=== PATIENT | female | born 1995 | race Caucasian/White ===

== ENCOUNTER 2022-05-05 14:46 | Emergency (ER) | payer OTHER ==
[2022-05-05] MEDS ORDERED: Sodium Chloride 0.9% 1,000 ML IV ONE (15:30)
[2022-05-05] MEDS ORDERED: Ondansetron 4 MG/2 ML SDV IVPUSH ONE ×2 (15:36→16:36)
[2022-05-05] MEDS ORDERED: Ondansetron 4 MG/2 ML SDV ONE (16:11)
[2022-05-05] MEDS ORDERED: Sodium Chloride 0.9% 1,000 ML IV SCH (16:45)
== END 2022-05-05 16:53 ==
LOC: LB.ED 14:46
DX: O03.4 Incomplete spontaneous abortion without complication (principal); I10 Essential (primary) hypertension; K21.9 Gastro-esophageal reflux disease without esophagitis; Z79.899 Other long term (current) drug therapy
CPT/HCPCS: 36415; 84702; 85025; 86850; 86900; 86901; 96361; 96374; 99285; 99285-25; A0425; A0429; J2405; J7030